=== PATIENT | female | born 1990 | race Two or more races ===

== ENCOUNTER 2025-01-05 09:40 | Inpatient (IN) | payer BC, OTHER ==
[~2025-01-05] VITALS: Ht 172.7 cm; Wt 105.0 kg
[2025-01-05 10:00] VITALS: PULSE 106; RESP 17; O2SAT 96
--- NOTE | 2025-01-05 10:02 | ED.PDOC ---
GI ASSESSMENT HPI Comments This is a 34 year old female ALEJANDRINA presenting to the ED with chief complaint of abdominal pain. Patient reports that she has been experiencing suprapubic abdominal pain with associated dysuria and mild fever since yesterday. Patient relays that she had a recent partial hysterectomy performed last week. EMS states that they provided 1g of Tylenol and IV fluids, dropping her pain from an 8/10 to a 5/10. Patient denies any N/V/D, dizziness, hematuria, vaginal bleeding, flank pain, or chills. Chief Complaint: Abdominal Pain Time Seen by MD: 09:58 Reviewed Notes: Nurses Notes, Bingo Cashier Notes, Medications, Allergies Allergies: Coded Allergies: NO KNOWN ALLERGIES (Unverified , 01/05/25) Information Source: Patient, Emergency Med Personnel Mode of Arrival: EMS Timing: Days Duration: Since onset Prehospital treatment: None Quality: Aching Vomitus: None Stool: Normal Severity: Moderate Recent: None Recent Hx of: Abdominal Surgery Pain Location: Suprapubic Modifying Factors: Nothing Associated sign and symptoms: Abdominal Pain Past Medical History PAST MEDICAL HISTORY: Denies Surgical History: Hysterectomy MENTAL HEALTH PROGRAM SPECIALIST History: No Pertinent MENTAL HEALTH PROGRAM SPECIALIST History Family History Family History: Reviewed,noncontributory to illness Social History Smoker: Non-Smoker Alcohol: Denies ETOH Use Drugs: Denies Drug Use Lives In: Home Constitutional: reports: fever; denies: chills, diaphoresis, fatigue, malaise, sweats, weakness, others EENTM: denies: blurred vision, double vision, ear bleeding, ear discharge, ear drainage, ear pain, ear ringing, eye pain, eye redness, hearing loss, mouth pain, mouth swelling, nasal discharge, nose bleeding, nose congestion, nose pain, photophobia, tearing, throat pain, throat swelling, voice changes, others Respiratory: denies: cough, hemoptysis, orthopnea, SOB at rest, shortness of breath, SOB with excertion, stridor, wheezing, others Cardiovascular: denies: chest pain, dizzy spells, diaphoresis, Dyspnea on exertion, edema, irregular heart beat, left arm pain, lightheadedness, palpitations, PND, syncope, others Gastrointestinal: reports: abdominal pain; denies: abdomen distended, blood streaked bowels, constipated, diarrhea, dysphagia, difficulty swallowing, hematemesis, melena, nausea, poor appetite, poor fluid intake, rectal bleeding, rectal pain, vomiting, others Genitourinary: reports: dysuria; denies: abnormal vagina bleeding, burning, dyspareunia, flank pain, frequency, hematuria, incontinence, pain, , vagina discharge, urgency, others Neurological: denies: dizziness, fainting, headache, left sided numbness, left sided weakness, numbness, paresthesia, pre-existing deficit, right sided numbness, right sided weakness, seizure, speech problems, tingling, tremors, weakness, others Musculoskeletal: denies: back pain, gout, joint pain, joint swelling, muscle pain, muscle stiffness, neck pain, others Integumetry: denies: bruises, change in color, change in hair/nails, dryness, laceration, lesions, lumps, rash, wounds, others Allergic/Immunocompromised: denies: Difficulty Healing, Frequent Infections, Hives, Itching, others Hematologic/Lymphatic: denies: anemia, blood clots, easy bleeding, easy bruising, swollen glands, others Endocrine: denies: excessive hunger, excessive sweating, excessive thirst, excessive urination, flushing, intolerance to cold, intolerance to heat, unexplained weight gain, unexplained weight loss, others Psychiatric: denies: anxiety, bipolar disorder, depression, hopeless, panic disorder, schizophrenia, sleepless, suicidal, others All Other Systems: Reviewed and Negative Physical Exam General Appearance: No Apparent Distress, Normal HEENT: Normal ENT Inspection, Pharynx Normal, TMs Normal Neck: Full Range of Motion, Non-Tender, Normal, Normal Inspection Respiratory: Chest Non-Tender, Lungs Clear, No Accessory Muscle Use, No Respiratory Distress, Normal Breath Sounds Cardiovascular: No Edema, No JVD, No Murmur, No Gallop, Normal Peripheral Pulses, Regular Rate/Rhythm Breast Exam: Deferred Gastrointestinal: No Organomegaly, No Pulsatile Mass, Normal Bowel Sounds, Soft, Tenderness (Suprapubic abdominal tenderness) Genitalia: Deferred Pelvic: Deferred Rectal: Deferred Extremities: No calf tenderness, Normal capillary refill, Normal inspection, Normal range of motion, Non-tender, No pedal edema Musculoskeletal : Apperance: Normal Neurologic: Alert, jewel supervisor II-XII nml as Tested, No Motor Deficits, Normal Affect, Normal Mood, No Sensory Deficits Cerebellar Function: Normal Reflexes: Normal Skin: Dry, Normal Color, Warm Lymphatic: No Adenopathy Was a procedure done? Was a procedure done?: No GI differential Dx Differential Diagnosis: Cholecystitis, Gastritis/PUD, Gastroenteritis, Inflammatory BD, UTI, Dehydration, Electrolyte Imbalance, Bacterial X-Ray, Labs, Meds, VS Vital Signs Date Time Temp Pulse Resp B/P (MAP) Pulse Ox O2 Delivery O2 Flow Rate FiO2 01/05/25 12:05 101 01/05/25 12:00 100.8 108 20 108/66 (80) 97 100.8 01/05/25 10:00 106 17 96 Room Air* 0 21 01/05/25 10:00 101.5 106 17 106/58 (74) 96 101.5 01/05/25 09:45 99.5 110 20 102/78 (86) 97 99.5 Lab Test 01/05/25 10:00 01/05/25 09:56 Range/Units Urine Color Light-yellow Yellow Urine Clarity Turbid H Clear Urine pH 5.5 5.0-9.0 Urine Specific [place] 1.027 1.001-1.035 Urine Protein Negative Negative Urine Ketones Negative Negative Urine Blood Trace H Negative /uL Urine Nitrite 2+ H Negative Urine Bilirubin Negative Negative Urine Urobilinogen Normal Negative mg/dL Urine Leukocyte Esterase 2+ Negative /uL Urine RBC 4 0 - 4 /hpf Urine Microscopic WBC 31 H 0-5 /HPF Urine Squamous Epithelial Cells Few <5 /hpf Urine Bacteria Few H None Seen /hpf Urine Glucose Normal Normal mg/dL White Blood Count 17.7 H 4.4-10.8 10^3/uL Red Blood Count 4.69 4.0-5.20 10^6/uL Hemoglobin 8.7 L 12.2-16.2 g/dL Hematocrit 28.3 L 36.0-46.0 % Mean Corpuscular Volume 60.2 L 80.0-100.0 fL Mean Corpuscular Hemoglobin 18.4 L 28.0-32.0 pg Mean Corpuscular Hemoglobin Concent 30.6 L 32.0-36.0 g/dL Red Cell Distribution Width 27.3 H 11.8-14.3 % Platelet Count 367 140-450 10^3/uL Mean Platelet Volume 9.2 6.9-10.8 fL Neutrophils (%) (Auto) 87.5 H 37.0-80.0 % Lymphocytes (%) (Auto) 6.2 L 10.0-50.0 % Monocytes (%) (Auto) 6.1 0.0-12.0 % Eosinophils (%) (Auto) 0.0 0.0-7.0 % Basophils (%) (Auto) 0.2 0.0-2.0 % Neutrophils # (Auto) 15.5 H 1.6-8.6 10 ^3/uL Lymphocytes # (Auto) 1.1 0.4-5.4 10 ^3/uL Monocytes # (Auto) 1.1 0-1.3 10 ^3/uL Eosinophils # (Auto) 0 0-0.8 10 ^3/uL Basophils # (Auto) 0 0-0.2 10 ^3/uL Nucleated Red Blood Cells 0.0 % Platelet Estimate Adequate Hypochromasia (manual) Moderate Anisocytosis (manual) Slight Microcytosis Marked Prothrombin Time 13.5 H 9.3-11.8 sec Prothrombin Time INR 1.31 H 0.9-1.15 Activated Partial Thromboplast Time 31.0 24.5-34.5 SEC Sodium Level 135 L 136-145 mmol/L Potassium Level 3.5 3.5-5.1 mmol/L Chloride Level 102 98-107 mmol/L Carbon Dioxide Level 22 20-31 mmol/L Anion Gap 11 5-15 Blood Urea Nitrogen 8 L 9-23 mg/dL Creatinine 0.76 0.550-1.02 mg/dL Glomerular Filtration Rate Calc 106 >90 mL/min BUN/Creatinine Ratio 10.5 10.0-20.0 Serum Glucose 111 H 74-106 mg/dL Lactic Acid Level 1.4 0.4-2.0 mmol/L Calcium Level 9.5 8.7-10.4 mg/dL Current Medications Medications (Trade) Dose Ordered Sig/Mervat Route Start Time Stop Time Status Last Admin Sodium Chloride 1,000 ml @ 1,000 mls/hr Q1H ONCE IV 01/05/25 10:00 01/05/25 10:59 DC 01/05/25 10:12 Lactated Ringer's 1,900 ml @ 1,900 mls/hr ONCE ONCE IV 01/05/25 10:15 01/05/25 11:14 DC 01/05/25 11:04 Vancomycin HCl 200 ml @ 200 mls/hr ONCE ONCE IV 01/05/25 10:15 01/05/25 11:14 DC 01/05/25 10:42 Cefepime HCl 50 ml @ 50 mls/hr ONCE ONCE IV 01/05/25 10:30 01/05/25 11:29 DC 01/05/25 12:06 Time of 1ST Reevaluation: 10:58 Reevaluation 1ST: Unchanged Patient Education/Counseling: Diagnosis, Treatment Family Education/Counseling: No Family Present SEPSIS Sepsis Screen Physician Orders Blood Culture (01/05/25 09:47) Chest Portable (01/05/25 10:13) Accucheck (01/05/25 10:13) Cefepime 1gm/ 50ml (Maxipime 1gm/50ml) (01/05/25 20:00) Notify Md If Map <65 Or Bp<90 (01/05/25 10:13) If Map<65 Start Vasopressor (01/05/25 10:13) Sepsis Reassesment After Fluid (01/05/25 11:13) Ct Ab Pel With Iv Con Only (01/05/25 10:13) Imaging Transfer Request (01/05/25 12:27) Metronidazole 500mg/100ml (Flagyl 500mg/ (01/05/25 15:00) * Radiologist Consult (01/05/25 14:54) Vital Signs Date Time Temp Pulse Resp B/P (MAP) Pulse Ox O2 Delivery O2 Flow Rate FiO2 01/05/25 12:05 101 01/05/25 12:00 100.8 108 20 108/66 (80) 97 100.8 01/05/25 10:00 106 17 96 Room Air* 0 21 01/05/25 10:00 101.5 106 17 106/58 (74) 96 101.5 01/05/25 09:45 99.5 110 20 102/78 (86) 97 99.5 Laboratory Tests Test 01/05/25 09:56 Lactic Acid Level 1.4 mmol/L (0.4-2.0) White Blood Count 17.7 10^3/uL (4.4-10.8) H Medications Medications Dose Ordered Sig/Mervat Route Start Time Stop Time Status Last Admin Dose Admin Cefepime HCl 50 ml @ 50 mls/hr ONCE ONCE IV 01/05/25 10:30 01/05/25 11:29 DC 01/05/25 12:06 Lactated Ringer's 1,900 ml @ 1,900 mls/hr ONCE ONCE IV 01/05/25 10:15 01/05/25 11:14 DC 01/05/25 11:04 Sodium Chloride 1,000 ml @ 1,000 mls/hr Q1H ONCE IV 01/05/25 10:00 01/05/25 10:59 DC 01/05/25 10:12 Vancomycin HCl 200 ml @ 200 mls/hr ONCE ONCE IV 01/05/25 10:15 01/05/25 11:14 DC 01/05/25 10:42 Departure 1 Departure Time of Disposition: 15:07 (Patient presented likely septic shock. Discussed the case with patient's Gyne surgeon who recommended that patient be admitted at our hospital receive IV antibiotics as a discussed with the IR about having a drain placed.Patient received IV fluids and antibiotics. We will admit for further workup and expert consultation) Impression: Primary Impression: Postoperative abscess Additional Impression: Sepsis Qualified Codes: A41.9 - Sepsis, unspecified organism; R65.21 - Severe sepsis with septic shock; G72.81 - Critical illness myopathy Disposition: 09 ADMITTED INPATIENT Admit to: [facility] Condition: Guarded Critical Care Note Critical Care Time?: Yes Critical care comment: Sepsis, intra-abdominal abscess Authorized and Performed by: Mellissa Aggarwal MD Total critical care time: Approximately 48 minutes Due to a high probability of clinically significant, life threatening deterioration, the patient required my highest level of preparedness to intervene emergently and I personally spent this critical care time directly and personally managing the patient. This critical care time included obtaining a history; examining the patient; pulse oximetry; ordering and review of studies; arranging urgent treatment with development of a management plan; evaluation of patient's response to treatment; frequent reassessment; and, discussions with other providers. This critical care time was performed to assess and manage the high probability of imminent, life-threatening deterioration that could result in multi-organ failure. It was exclusive of separately billable procedures and treating other patients and teaching time. Please see my other sections and the rest of the note for further information on patient assessment and treatment. Stability Stability form required: No Heart Score Heart Score: Heart Score Response (Comments) Value History N/A 0 EKG N/A 0 Age N/A 0 Risk Factors N/A 0 Troponin N/A 0 Total 0 I personally scribed for MELLISSA AGGARWAL MD ([email or web address]) on 01/05/25 at 10:02. Electronically submitted by Andrés Guaman ([email or web address]). MELLISSA AGGARWAL MD Jan 05, 2025 10:02
[2025-01-05] MEDS: SODIUM CHLORIDE 0.9% 1,000 ML IV ONE (10:12)
[2025-01-05 10:34] LABS: Hemoglobin 8.7 g/dL (12.2-16.2); Nucleated Red Blood Cells % 0.0 %
[2025-01-05 10:36] LABS: Hematocrit 28.3 % (36.0-46.0); Mean Corpuscular Hemoglobin 18.4 pg (28.0-32.0); Mean Corpuscular Volume 60.2 fL (80.0-100.0)
[2025-01-05] MEDS: VANCOMYCIN 1GM/200ML PM 200 ML IV ONE (10:42)
[2025-01-05 10:50] LABS: Chloride 102 mmol/L (98-107); Potassium 3.5 mmol/L (3.5-5.1)
[2025-01-05] MEDS: ACETAMINOPHEN IV 1000 MG/100ML (10MG/ML) IV STA (10:50)
[2025-01-05 10:51] LABS: Anion Gap 11 (5-15); Calcium 9.5 mg/dL (8.7-10.4); Carbon Dioxide 22 mmol/L (20-31)
[2025-01-05 10:52] LABS: Sodium 135 mmol/L (136-145)
[2025-01-05 10:53] LABS: INR 1.31 (0.9-1.15); Partial Thromboplastin Time 31.0 SEC (24.5-34.5); Prothrombin Time 13.5 sec (9.3-11.8)
[2025-01-05 10:56] LABS: BUN/Creatinine Ratio 10.5 (10.0-20.0)
[2025-01-05 10:58] LABS: Blood Urea Nitrogen 8 mg/dL (9-23); Glucose 111 mg/dL (74-106)
[2025-01-05] MEDS: LACTATED RINGER'S 1,900 ML IV ONE (11:04)
[2025-01-05 11:10] LABS: Anisocytosis Slight
--- NOTE | 2025-01-05 11:57 | DVH ---
CHEST RADIOGRAPH Indication: sepsis Technique: Single frontal view of the chest was obtained COMPARISON: None FINDINGS: Lines and Tubes: None Lungs: Clear Pleura: No effusion. No pneumothorax. Cardiomediastinal contours: Unremarkable Bones: Unremarkable IMPRESSION: No acute disease.
[2025-01-05] MEDS: CEFEPIME 1GM/ 50ML 50 ML IV ONE (12:06)
--- NOTE | 2025-01-05 12:09 | DVH ---
Indication: recent surgery, febrile, tender Technique: CT axial images of the abdomen and pelvis are obtained with 568.55 x 597.03 intravenous co ntrast. Coronal and sagittal reformats were obtained. Radiation Dose Information: CTDI volume is 1166.01 mGy. Dose-length product is 1158.17 mGy*cm Comparison: None FINDINGS: Lung bases demonstrate no pleural effusion. Bilateral atelectasis. Adrenal glands, spleen, pancreas unremarkable. No enhancing hepatic lesion. No CT evidence for pedro lithiasis. The kidneys demonstrate mild bilateral hydroureteronephrosis. Stomach is partially distended. Small bowel loops are moderately distended. Moderate volume stool in the colon. Normal appendix. Abdominal aorta normal in caliber. Multiloculated pelvic rim enhancing collection measuring 8.7 x 7.1 x 5.6 cm. Surrounding inflammator y stranding. Presacral edema. Fluid in the bilateral paracolic gutters, [id number]. Bladder is partially distended. No inguinal lymphadenopathy. No aggressive osseous process. IMPRESSION: Multiloculated pelvic rim enhancing collection measuring 8.7 x 7.1 cm with surrounding extends inflam matory stranding. In the postoperative setting, differential considerations would favor an abscess. Other considerations include postoperative collection/ hematoma / seroma. Recommend surgical consult ation for further management. Mild bilateral hydroureteronephrosis secondary to compression upon the distal ureters secondary to th e underlying pelvic process.
[2025-01-05 12:18] LABS: Urine Protein, UAD Negative (Negative)
[2025-01-05 15:00] VITALS: PULSE 117; RESP 25; O2SAT 96
[2025-01-05] MEDS ORDERED: NITROGLYCERIN 0.4 MG SL TAB SL PRN (15:30)
[2025-01-05] MEDS ORDERED: MORPHINE SULFATE INJ 2 MG/ml SYRG IV PRN (15:30)
[2025-01-05] MEDS ORDERED: VANCOMYCIN 1GM/200ML PM 200 ML IV SCH (15:30)
--- NOTE | 2025-01-05 15:40 | DVHHP2 ---
History of Present Illness Reason for Visit: Sepsis, unspecified organism History of Present Illness The patient is a 34-year-old female who denies past medical history presented to [facility] ED with complaint of abdominal pain. Patient reports she has been experiencing suprapubic abdominal pain, rating 8/10 numeric scale, associated with dysuria, fever, getting worse that prompted this visit. Patient states that she had recent partial hysterectomy performed last week. Patient was seen and evaluated in the ED, laboratory data shows WBC 17.7, hemoglobin 8.7, hematocrit 28.3, platelets 367, sodium 138, potassium 3.5, BUN eight, creatinine 0.76, glucose 111, calcium 9.5, blood pressure 108/56, heart rate 101, temperature 101.5 F trending down to 99.5 F, O2 saturation 97% on room air. Abdomen/pelvis CT revealing multiloculated pelvic rim enhancing collection measuring 8.7 x 7.1 cm with surrounding extend inflammatory stranding; in the postoperative setting, differential considerations favor an abscess; mild bilateral hydroureteronephrosis secondary to compression upon the distal ureters secondary to the underlying pelvic process. Urinalysis positive for urinary tract infection. Patient was started on IV antibiotic regimen vancomycin, please see medication orders section in the computer. On my assessment, patient denied chest pain, no dizziness, no headache, no shortness of breath, no nausea, no vomiting, no chills. Patient was admitted for further evaluation and medical management. Past Medical History Denies past medical history Past Surgical History Hysterectomy Family History Reviewed, noncontributory to the management of this case. Past Social History The patient lives at home, denies smoking, alcohol or illicit drugs abuse. Review of Systems Constitutional: Yes: Fever, Weakness; No: Chills, Sweats, Malaise, Other Eyes: No: Pain, Vision change, Conjunctivae inflammation, Eyelid inflammation, Other, Redness ENT: No: Ear pain, Ear discharge, Nose pain, Nose discharge, Nose congestion, Mouth pain, Mouth swelling, Throat pain, Throat swelling, Other Respiratory: No: Cough, Dry, Shortness of breath, SOB with excertion, Wheezing, Hemoptysis, Pleuritic Pain, Sputum, Wheezing, Other Cardiovascular: No: Chest Pain, Palpitations, Orthopnea, Paroxysmal Noc. Dyspnea, Edema, Lt Headedness, Other Gastrointestinal: Abdominal Pain; No: Nausea, Vomiting, Diarrhea, Constipation, Melena, Hematochezia, Other Genitourinary: Dysuria; No Frequency, No Incontinence, No Hematuria, No Retention, No Other Musculoskeletal: No: other, neck pain, shoulder pain, arm pain, back pain, hand pain, leg pain, foot pain Skin: No: Rash, Lesions, Jaundice, Bruising, Other Neurological: No: Weakness, Numbness, Incoordination, Change in speech, Confusion, Seizures, Other Allergies: Coded Allergies: NO KNOWN ALLERGIES (Unverified , 01/05/25) Medications Current Medications Medications Dose Ordered Sig/Mervat Route Start Time Stop Time Status Last Admin Dose Admin Cefepime HCl 50 ml @ 12.5 mls/hr Q8H IV 01/05/25 20:00 Exam Vital Signs Vital Signs Date Time Temp Pulse Resp B/P (MAP) Pulse Ox O2 Delivery O2 Flow Rate FiO2 01/05/25 12:05 101 01/05/25 12:00 100.8 20 108/66 (80) 97 100.8 01/05/25 10:00 Room Air* 0 21 General Appearance: Alert, Oriented X3, Cooperative, No acute distress HEENT: Atraumatic, PERRLA, EOMI, Mucous membr. moist/pink Respiratory: Clear to auscultation, Normal air movement Cardiovascular: Regular rate, Normal S1, Normal S2, No murmurs Abdominal: Normal bowel sounds, Soft, No hepatospenomegaly, No masses, Other (Reports tenderness) Extremities: No clubbing, No cyanosis, No edema, Normal pulses, No tenderness/swelling Skin: No rashes, No breakdown, No significant lesion Neuro: Normal speech, Normal tone, Sensation intact, Cranial nerves 3-12 NL, Reflexes 2+, Other (Generalized weakness) Psych/Mental Status: Mental status NL, Mood NL Labs/Xrays Labs Test 01/05/25 10:00 01/05/25 09:56 Range/Units Urine Color Light-yellow Yellow Urine Clarity Turbid H Clear Urine pH 5.5 5.0-9.0 Urine Specific [place] 1.027 1.001-1.035 Urine Protein Negative Negative Urine Ketones Negative Negative Urine Blood Trace H Negative /uL Urine Nitrite 2+ H Negative Urine Bilirubin Negative Negative Urine Urobilinogen Normal Negative mg/dL Urine Leukocyte Esterase 2+ Negative /uL Urine RBC 4 0 - 4 /hpf Urine Microscopic WBC 31 H 0-5 /HPF Urine Squamous Epithelial Cells Few <5 /hpf Urine Bacteria Few H None Seen /hpf Urine Glucose Normal Normal mg/dL White Blood Count 17.7 H 4.4-10.8 10^3/uL Red Blood Count 4.69 4.0-5.20 10^6/uL Hemoglobin 8.7 L 12.2-16.2 g/dL Hematocrit 28.3 L 36.0-46.0 % Mean Corpuscular Volume 60.2 L 80.0-100.0 fL Mean Corpuscular Hemoglobin 18.4 L 28.0-32.0 pg Mean Corpuscular Hemoglobin Concent 30.6 L 32.0-36.0 g/dL Red Cell Distribution Width 27.3 H 11.8-14.3 % Platelet Count 367 140-450 10^3/uL Mean Platelet Volume 9.2 6.9-10.8 fL Neutrophils (%) (Auto) 87.5 H 37.0-80.0 % Lymphocytes (%) (Auto) 6.2 L 10.0-50.0 % Monocytes (%) (Auto) 6.1 0.0-12.0 % Eosinophils (%) (Auto) 0.0 0.0-7.0 % Basophils (%) (Auto) 0.2 0.0-2.0 % Neutrophils # (Auto) 15.5 H 1.6-8.6 10 ^3/uL Lymphocytes # (Auto) 1.1 0.4-5.4 10 ^3/uL Monocytes # (Auto) 1.1 0-1.3 10 ^3/uL Eosinophils # (Auto) 0 0-0.8 10 ^3/uL Basophils # (Auto) 0 0-0.2 10 ^3/uL Nucleated Red Blood Cells 0.0 % Platelet Estimate Adequate Hypochromasia (manual) Moderate Anisocytosis (manual) Slight Microcytosis Marked Prothrombin Time 13.5 H 9.3-11.8 sec Prothrombin Time INR 1.31 H 0.9-1.15 Activated Partial Thromboplast Time 31.0 24.5-34.5 SEC Sodium Level 135 L 136-145 mmol/L Potassium Level 3.5 3.5-5.1 mmol/L Chloride Level 102 98-107 mmol/L Carbon Dioxide Level 22 20-31 mmol/L Anion Gap 11 5-15 Blood Urea Nitrogen 8 L 9-23 mg/dL Creatinine 0.76 0.550-1.02 mg/dL Glomerular Filtration Rate Calc 106 >90 mL/min BUN/Creatinine Ratio 10.5 10.0-20.0 Serum Glucose 111 H 74-106 mg/dL Lactic Acid Level 1.4 0.4-2.0 mmol/L Calcium Level 9.5 8.7-10.4 mg/dL PATIENT: ODALYS ELLOITT ACCT: [id number] UNIT: [id number] : 1990 LOC: ER ROOM / BED: / AGE / SEX: 34 / F ADM STATUS: REG ER SERVICE 1013 ORDERING PHYSICIAN: MELLISSA PEPPER MD PROCEDURE(s): ABPLIV - CT AB PEL WITH IV CON ONLY REASON: recent surgery, febrile, tender ORDER NUMBER(s): [id number], ACCESSION NUMBER(s): [id number] Indication: recent surgery, febrile, tender Technique: CT axial images of the abdomen and pelvis are obtained with 568.55 x 597.03 intravenous contrast. Coronal and sagittal reformats were obtained. Radiation Dose Information: CTDI volume is 1166.01 mGy. Dose-length product is 1158.17 mGy*cm Comparison: None FINDINGS: Lung bases demonstrate no pleural effusion. Bilateral atelectasis. Adrenal glands, spleen, pancreas unremarkable. No enhancing hepatic lesion. No CT evidence for cholelithiasis. The kidneys demonstrate mild bilateral hydroureteronephrosis. Stomach is partially distended. Small bowel loops are moderately distended. Moderate volume stool in the colon. Normal appendix. Abdominal aorta normal in caliber. Multiloculated pelvic rim enhancing collection measuring 8.7 x 7.1 x 5.6 cm. Surrounding inflammatory stranding. Presacral edema. Fluid in the bilateral paracolic gutters, [id number]. Bladder is partially distended. No inguinal lymphadenopathy. No aggressive osseous process. IMPRESSION: Multiloculated pelvic rim enhancing collection measuring 8.7 x 7.1 cm with surrounding extends inflammatory stranding. In the postoperative setting, differential considerations would favor an abscess. Other considerations include postoperative collection/ hematoma/seroma. Recommend surgical consultation for further management. Mild bilateral hydroureteronephrosis secondary to compression upon the distal ureters secondary to the underlying pelvic process. ORDERING PHYSICIAN: MELLISSA PEPPER MD PROCEDURE(s): CXRP - CHEST PORTABLE REASON: sepsis ORDER NUMBER(s): [id number], ACCESSION NUMBER(s): [id number] CHEST RADIOGRAPH Indication: sepsis Technique: Single frontal view of the chest was obtained COMPARISON: None FINDINGS: Lines and Tubes: None Lungs: Clear Pleura: No effusion. No pneumothorax. Cardiomediastinal contours: Unremarkable Bones: Unremarkable IMPRESSION: No acute disease. SEPSIS Sepsis Screen Date sepsis recognized/suspect: Jan 05, 2025 Time Sepsis recognized/suspect: 1000 Recent Procedure: Yes On Antibiotic Therapy: No Respiratory Rate >20: No Heart Rate >90: Yes Temp<36 C (96.8 F) or >38.3 C: Yes SBP <90 or MAP <65 mmHG: No New Acute Mental Status Change: No Is the patient on CPAP, BIPAP,: No Physician Orders Blood Culture (01/05/25 09:47) Chest Portable (01/05/25 10:13) Accucheck (01/05/25 10:13) Cefepime 1gm/ 50ml (Maxipime 1gm/50ml) (01/05/25 20:00) Notify Md If Map <65 Or Bp<90 (01/05/25 10:13) If Map<65 Start Vasopressor (01/05/25 10:13) Sepsis Reassesment After Fluid (01/05/25 11:13) Ct Ab Pel With Iv Con Only (01/05/25 10:13) Imaging Transfer Request (01/05/25 12:27) Metronidazole 500mg/100ml (Flagyl 500mg/ (01/05/25 15:00) * Radiologist Consult (01/05/25 14:54) Vital Signs Date Time Temp Pulse Resp B/P (MAP) Pulse Ox O2 Delivery O2 Flow Rate FiO2 01/05/25 12:05 101 01/05/25 12:00 100.8 108 20 108/66 (80) 97 100.8 01/05/25 10:00 106 17 96 Room Air* 0 21 01/05/25 10:00 101.5 106 17 106/58 (74) 96 101.5 01/05/25 09:45 99.5 110 20 102/78 (86) 97 99.5 Laboratory Tests Test 01/05/25 09:56 Lactic Acid Level 1.4 mmol/L (0.4-2.0) White Blood Count 17.7 10^3/uL (4.4-10.8) H Medications Medications Dose Ordered Sig/Mervat Route Start Time Stop Time Status Last Admin Dose Admin Cefepime HCl 50 ml @ 50 mls/hr ONCE ONCE IV 01/05/25 10:30 01/05/25 11:29 DC 01/05/25 12:06 50 MLS/HR Lactated Ringer's 1,900 ml @ 1,900 mls/hr ONCE ONCE IV 01/05/25 10:15 01/05/25 11:14 DC 01/05/25 11:04 1,900 MLS/HR Sodium Chloride 1,000 ml @ 1,000 mls/hr Q1H ONCE IV 01/05/25 10:00 01/05/25 10:59 DC 01/05/25 10:12 1,000 MLS/HR Vancomycin HCl 200 ml @ 200 mls/hr ONCE ONCE IV 01/05/25 10:15 01/05/25 11:14 DC 01/05/25 10:42 200 MLS/HR Assessment/Plan Assessment/Plan Sepsis, unspecified organism Acute abdominal pain Postoperative abscess Urinary tract infection Generalized weakness Plan 1. Admit to telemetry unit 2. Breathing treatment 3. Pain control management 4. IV antibiotic management 5. Management of fluids and electrolytes 6. Consultation for hospitalist/radiology 7. Diagnostic test abdomen/pelvis CT 8. DVT prophylaxis-on SCDs 9. Repeat labs CBC, CMP in a.m. 10. Continue with current medical management 11. Treatment plan discussed with patient and RN. Patient verbalized understanding. Plan discussed with: Patient, Other (RN) Problem List: (1) Sepsis, unspecified organism (2) Acute abdominal pain (3) Postoperative abscess (4) Urinary tract infection (5) Generalized weakness Date of Service: Jan 05, 2025 Billing Provider: BRUCE LEVINE DNP Common Visit Codes: [id number] INP/OBS CARE (HIGH) BRUCE LEVINE DNP Jan 05, 2025 15:40
[2025-01-05] MEDS: MORPHINE SULFATE INJ 2 MG/ml SYRG IV PRN (15:50)
[2025-01-05] MEDS: PANTOPRAZOLE 40 MG/10 ML VIAL INJ IV ONE (15:55)
[2025-01-05] MEDS ORDERED: VANCOMYCIN PER PHARMACY 0 MG IV SCH (16:00)
[2025-01-05] MEDS: SODIUM CHLORIDE 0.9% 1,000 ML IV SCH (16:15)
[2025-01-05] MEDS: ONDANSETRON HCL 4 MG/2 ML VIAL IV PRN (16:36)
[2025-01-05] MEDS: PIPERACILLIN-TAZOB 3.375GM 100 ML IV ONE (17:19)
[2025-01-05 17:48] VITALS: BP 110/63; PULSE 110; PULSE 113; RESP 20; TEMP 103.1; O2SAT 97
[2025-01-05] MEDS: ACETAMINOPHEN 325 MG TAB PO PRN (18:06)
[2025-01-05] MEDS ORDERED: IBUP1TAB5 PO (18:10)
[2025-01-05] MEDS ORDERED: DOCU-265 PO (18:10)
[2025-01-05] MEDS: VANCOMYCIN 1GM/200ML PM 200 ML IV SCH (19:57)
[2025-01-05 20:00] VITALS: PULSE 106
[2025-01-05] MEDS ORDERED: CEFEPIME 1GM/ 50ML 50 ML IV SCH (20:00)
[2025-01-05 21:00] VITALS: BP 102/55; PULSE 97; RESP 14; TEMP 97.7; O2SAT 100
[2025-01-05] MEDS: PIPERACILLIN-TAZOB 3.375GM 100 ML IV SCH (21:44)
[2025-01-06] VITALS (16 sets, daily range): BP systolic 100–117; BP diastolic 43–73; PULSE 86–117; RESP 14–24; TEMP 98.1–102.8; O2SAT 94–100
[2025-01-06 06:32] LABS: Mean Corpuscular Hemoglobin 18.5 pg (28.0-32.0); Nucleated Red Blood Cells % 0.0 %
[2025-01-06 06:36] LABS: Alanine Aminotransferase 10 U/L (7-40); Alkaline Phosphatase 75 U/L (46-116); Anion Gap 9 (5-15); BUN/Creatinine Ratio 10.0 (10.0-20.0); Calcium 9.7 mg/dL (8.7-10.4); Carbon Dioxide 23 mmol/L (20-31); Chloride 106 mmol/L (98-107); Hematocrit 24.0 % (36.0-46.0); Hemoglobin 7.2 g/dL (12.2-16.2); Mean Corpuscular Volume 61.5 fL (80.0-100.0); Sodium 138 mmol/L (136-145); Total Protein 6.5 g/dL (5.7-8.2)
[2025-01-06 06:37] LABS: Albumin 3.9 g/dL (3.2-4.8)
[2025-01-06 06:38] LABS: Bilirubin, Total 1.5 mg/dL (0.2-1.0); Blood Urea Nitrogen 7 mg/dL (9-23); Potassium 3.4 mmol/L (3.5-5.1)
[2025-01-06 07:04] LABS: Glucose 96 mg/dL (74-106)
[2025-01-06 07:42] LABS: INR 1.31 (0.9-1.15); Partial Thromboplastin Time 34.0 SEC (24.5-34.5); Prothrombin Time 13.5 sec (9.3-11.8)
[2025-01-06 08:17] LABS: Anisocytosis Slight
[2025-01-06 08:19] LABS: Ovalocytes FEW
[2025-01-06] MEDS ORDERED: LIDOCAINE 2%HCL (LOCAL ANESTH.) INJ 10ml MDV ONE (09:11)
[2025-01-06] MEDS: fentaNYL CITRATE 100 MCG/2 ML VL IV ONE (09:45)
[2025-01-06] MEDS: MIDAZOLAM HCL 2MG/2ML 2ml VIAL (1mg/ml) IV ONE (09:45)
--- NOTE | 2025-01-06 11:33 | DVH ---
PROCEDURE: Drainage catheter placement Procedural Personnel Attending physician(s): Zia Mcintosh Fellow physician(s): None Resident physician(s): None Advanced practice provider(s): None Pre-procedure diagnosis: Pelvic fluid collection Post-procedure diagnosis: Same Indication: Post-operative fluid collection Additional clinical history: None Complications: No immediate complications. IMPRESSION: Percutaneous placement of a 10 tamazight drainage catheter into multiloculated pelvic fluid collection, yielding 25 mL of purulent fluid. Plan: Flush drain with 10 mL normal saline daily to maintain patency. PROCEDURE SUMMARY: - Intraperitoneal drainage catheter placement under CT guidance - Additional procedure(s): None PROCEDURE DETAILS: Pre-procedure Consent: Informed consent for the procedure including risks, benefits and alternatives was obtained a nd time-out was performed prior to the procedure. Preparation: The site was prepared and draped using maximal sterile barrier technique including cutan eous antisepsis. Anesthesia/sedation Level of anesthesia/sedation: Moderate sedation (conscious sedation) Anesthesia/sedation administered by: Independent trained observer under attending supervision with co ntinuous monitoring of the patient s level of consciousness and physiologic status Total intra-service sedation time (minutes): 30 Drainage catheter placement The patient was positioned supine. Initial imaging was performed. Local anesthesia was administered. The fluid collection was accessed using an access needle followed by wire insertion and serial dilati on and a drainage catheter was placed. Position of the drainage catheter within the fluid collection was confirmed. Initial imaging findings: Multiloculated pelvic fluid collection Access route: Percutaneous Drainage catheter placed: Multipurpose drain Drain size (Fr): 10 External catheter securement: Non-absorbable suture Drainage catheter contrast injection: No Final imaging findings: Near-complete drainage of the fluid collection Contrast Contrast agent: None Contrast volume (mL): [address] dose length product (mGy-cm): 1565.29 Additional Details Additional description of procedure: None Registry event: V/3/f Device used: None Equipment details: None Specimens removed: 25 mL of purulent fluid. Aspirated fluid was sent for analysis. Estimated blood loss (mL): Less than 10 Standardized report: [email or web address] Attestation Signer name: Zia Mcintosh I attest that I was present for the entire procedure. I reviewed the stored images and agree with the report as written.
[2025-01-06] MEDS: PANTOPRAZOLE 40 MG/10 ML VIAL INJ IV SCH (12:03)
[2025-01-06] MEDS: HYDROcodone-ACET 5/325MG TAB PO PRN (12:04)
--- NOTE | 2025-01-06 12:06 | DVH ---
PROCEDURE: Drainage catheter placement Procedural Personnel Attending physician(s): Zia Mcintosh Fellow physician(s): None Resident physician(s): None Advanced practice provider(s): None Pre-procedure diagnosis: Pelvic fluid collection Post-procedure diagnosis: Same Indication: Post-operative fluid collection Additional clinical history: None Complications: No immediate complications. IMPRESSION: Percutaneous placement of a 10 albanian drainage catheter into multiloculated pelvic fluid collection, yielding 25 mL of purulent fluid. Plan: Flush drain with 10 mL normal saline daily to maintain patency. PROCEDURE SUMMARY: - Intraperitoneal drainage catheter placement under CT guidance - Additional procedure(s): None PROCEDURE DETAILS: Pre-procedure Consent: Informed consent for the procedure including risks, benefits and alternatives was obtained a nd time-out was performed prior to the procedure. Preparation: The site was prepared and draped using maximal sterile barrier technique including cutan eous antisepsis. Anesthesia/sedation Level of anesthesia/sedation: Moderate sedation (conscious sedation) Anesthesia/sedation administered by: Independent trained observer under attending supervision with co ntinuous monitoring of the patient s level of consciousness and physiologic status Total intra-service sedation time (minutes): 30 Drainage catheter placement The patient was positioned supine. Initial imaging was performed. Local anesthesia was administered. The fluid collection was accessed using an access needle followed by wire insertion and serial dilati on and a drainage catheter was placed. Position of the drainage catheter within the fluid collection was confirmed. Initial imaging findings: Multiloculated pelvic fluid collection Access route: Percutaneous Drainage catheter placed: Multipurpose drain Drain size (Fr): 10 External catheter securement: Non-absorbable suture Drainage catheter contrast injection: No Final imaging findings: Near-complete drainage of the fluid collection Contrast Contrast agent: None Contrast volume (mL): [address] dose length product (mGy-cm): 1565.29 Radiation optimization: All CT scans at this facility use at least one of these dose optimization doug hniques: automated exposure control mA and/or kV adjustment per patient size (includes targeted exam s where dose is matched to clinical indication) or iterative reconstruction. Additional Details Additional description of procedure: None Registry event: V/3/f Device used: None Equipment details: None Specimens removed: 25 mL of purulent fluid. Aspirated fluid was sent for analysis. Estimated blood loss (mL): Less than 10 Standardized report: [email or web address] Attestation Signer name: Zia Floresca I attest that I was present for the entire procedure. I reviewed the stored images and agree with the report as written.
--- NOTE | 2025-01-06 23:26 | DVHPN2 ---
Subjective Seen in bed had IR drainage Reviewed: H&P, Labs Changes from previous H/P or p: No Changes Eyes: No Pain, No Vision change, No Conjunctivae inflammation, No Eyelid inflammation, No Other, No Redness ENT: No Ear pain, No Ear discharge, No Nose pain, No Nose discharge, No Nose congestion, No Mouth pain, No Mouth swelling, No Throat pain, No Throat swelling, No Other Cardiovascular: No Chest Pain, No Palpitations, No Orthopnea, No Paroxysmal Noc. Dyspnea, No Edema, No Lt Headedness, No Other Respiratory: No Cough, No Dry, No Shortness of breath, No SOB with excertion, No Wheezing, No Hemoptysis, No Pleuritic Pain, No Sputum, No Other Gastrointestinal: No Nausea, No Vomiting; Abdominal Pain; No Diarrhea, No Constipation, No Melena, No Hematochezia, No Other Genitourinary: Dysuria; No Frequency, No Incontinence, No Hematuria, No Retention, No Other Musculoskeletal: No other, No neck pain, No shoulder pain, No arm pain, No back pain, No hand pain, No leg pain, No foot pain Skin: No Rash, No Lesions, No Jaundice, No Bruising, No Other Objective Vitals Vital Signs Date Time Temp Pulse Resp B/P (MAP) Pulse Ox O2 Delivery O2 Flow Rate FiO2 01/06/25 21:00 98.9 97 19 101/57 (72) 94 98.9 01/06/25 20:00 Room Air* 0 21 Intake/Output Intake and Output 01/06/25 07:00 Intake Total 4500 ml Balance 4500 ml Intake Oral 700 ml IV Total 3800 ml # Voids 5 # Bowel Movements 5 General Appearance: Alert, Oriented X3 Lungs: Clear to auscultation Cardiovascular: Regular rate, Normal S1, Normal S2 Abdomen: Normal bowel sounds Medications Current Medications Medications Dose Ordered Sig/Mervat Route Start Time Stop Time Status Last Admin Dose Admin Piperacillin Sod/ Tazobactam Sod 100 ml @ 25 mls/hr Q6H IV 01/05/25 22:00 01/06/25 21:38 25 MLS/HR Pantoprazole Sodium 40 mg DAILY IV 01/06/25 10:00 01/06/25 12:03 40 MG Sodium Chloride 1,000 ml @ 60 mls/hr [id number] IV 01/05/25 15:30 01/06/25 12:04 60 MLS/HR Acetaminophen/ Hydrocodone Bitart 1 tab Q4HP PRN PO 01/05/25 15:30 01/06/25 18:38 1 TAB Ondansetron HCl 4 mg Q4HP PRN IV 01/05/25 15:30 01/05/25 16:36 4 MG Docusate Sodium 100 mg BIDPRN PRN PO 01/05/25 15:30 Acetaminophen 650 mg Q6HP PRN PO 01/05/25 15:30 01/06/25 16:42 650 MG Morphine Sulfate 2 mg Q4HPRN PRN IV 01/05/25 15:30 01/05/25 15:50 2 MG Nitroglycerin 0.4 mg Q5MINP PRN SL 01/05/25 15:30 Morphine Sulfate 2 mg Q30M PRN IV 01/05/25 15:30 Vancomycin HCl 0 ml @ 0 mls/hr UD IV 01/05/25 16:00 Vancomycin HCl 200 ml @ 200 mls/hr Q8H IV 01/05/25 19:00 01/06/25 18:38 200 MLS/HR Laboratory Results Laboratory Tests 01/06/25 05:21 Chemistry Test 01/06/25 05:21 Albumin 3.9 g/dL (3.2-4.8) Calcium Level 9.7 mg/dL (8.7-10.4) Total Protein 6.5 g/dL (5.7-8.2) Coagulation Test 01/06/25 05:21 Prothrombin Time 13.5 sec (9.3-11.8) H Prothrombin Time INR 1.31 (0.9-1.15) H Activated Partial Thromboplast Time 34.0 SEC (24.5-34.5) LFT Test 01/06/25 05:21 Alanine Aminotransferase (ALT) 10 U/L (7-40) Alkaline Phosphatase 75 U/L (46-116) Aspartate Amino Transferase (AST) 10 U/L (13-40) L Total Bilirubin 1.5 mg/dL (0.2-1.0) H Urinalysis Test 01/05/25 10:00 Urine Color Light-yellow (Yellow) Urine Clarity Turbid (Clear) H Urine pH 5.5 (5.0-9.0) Urine Specific [place] 1.027 (1.001-1.035) Urine Protein Negative (Negative) Urine Ketones Negative (Negative) Urine Blood Trace /uL (Negative) H Urine Nitrite 2+ (Negative) H Urine Bilirubin Negative (Negative) Urine Urobilinogen Normal mg/dL (Negative) Urine Leukocyte Esterase 2+ /uL (Negative) Urine RBC 4 /hpf (0 - 4) Urine Microscopic WBC 31 /HPF (0-5) H Urine Squamous Epithelial Cells Few /hpf (<5) Urine Bacteria Few /hpf (None Seen) H Urine Glucose Normal mg/dL (Normal) Microbiology Microbiology Date/Time Source Procedure Growth Status 01/06/25 10:40 Aspirate Gram Stain - Final Resulted 01/06/25 10:40 Aspirate Body Fluid Culture Pending Resulted 01/05/25 09:56 Blood Blood Culture - Preliminary NO GROWTH AFTER 24 HOURS OF INCUBATION. Resulted Assessment/Plan Assessment/Plan Sepsis, unspecified organism Acute abdominal pain Postoperative abscess Urinary tract infection Generalized weakness Continue IV abx s/p IR drainage cultures sent Plan discussed with: Patient Date of Service: Jan 06, 2025 Billing Provider: EMANUEL COE MD Common Visit Codes: [id number] INP/OBS CARE(HIGH) EMANUEL COE MD Jan 06, 2025 23:26
[2025-01-07] VITALS (9 sets, daily range): BP systolic 101–113; BP diastolic 57–68; PULSE 92–117; RESP 16–19; TEMP 97.5–99.4; O2SAT 92–98
[2025-01-07] MEDS ORDERED: VANCOMYCIN 1GM/200ML PM 200 ML IV SCH
--- NOTE | 2025-01-07 18:34 | DVHPN2 ---
Subjective Seen in bed and feeling well Reviewed: H&P, Labs Changes from previous H/P or p: No Changes Eyes: No Pain, No Vision change, No Conjunctivae inflammation, No Eyelid inflammation, No Other, No Redness ENT: No Ear pain, No Ear discharge, No Nose pain, No Nose discharge, No Nose congestion, No Mouth pain, No Mouth swelling, No Throat pain, No Throat swelling, No Other Cardiovascular: No Chest Pain, No Palpitations, No Orthopnea, No Paroxysmal Noc. Dyspnea, No Edema, No Lt Headedness, No Other Respiratory: No Cough, No Dry, No Shortness of breath, No SOB with excertion, No Wheezing, No Hemoptysis, No Pleuritic Pain, No Sputum, No Other Gastrointestinal: No Nausea, No Vomiting; Abdominal Pain; No Diarrhea, No Constipation, No Melena, No Hematochezia, No Other Genitourinary: Dysuria; No Frequency, No Incontinence, No Hematuria, No Retention, No Other Musculoskeletal: No other, No neck pain, No shoulder pain, No arm pain, No back pain, No hand pain, No leg pain, No foot pain Skin: No Rash, No Lesions, No Jaundice, No Bruising, No Other Objective Vitals Vital Signs Date Time Temp Pulse Resp B/P (MAP) Pulse Ox O2 Delivery O2 Flow Rate FiO2 01/07/25 18:12 100.3 01/07/25 17:00 117 18 111/67 (82) 98 01/07/25 08:00 Room Air* 0 21 Intake/Output Intake and Output 01/07/25 07:00 Intake Total 2009 ml Balance 2009 ml Intake Oral 1310 ml IV Total 700 ml # Voids 9 # Bowel Movements 6 General Appearance: Alert, Oriented X3 Lungs: Clear to auscultation Cardiovascular: Regular rate, Normal S1, Normal S2 Abdomen: Normal bowel sounds Medications Current Medications Medications Dose Ordered Sig/Mervat Route Start Time Stop Time Status Last Admin Dose Admin Piperacillin Sod/ Tazobactam Sod 100 ml @ 25 mls/hr Q6H IV 01/05/25 22:00 01/07/25 17:27 25 MLS/HR Pantoprazole Sodium 40 mg DAILY IV 01/06/25 10:00 01/07/25 09:57 40 MG Sodium Chloride 1,000 ml @ 60 mls/hr [id number] IV 01/05/25 15:30 01/07/25 02:26 60 MLS/HR Acetaminophen/ Hydrocodone Bitart 1 tab Q4HP PRN PO 01/05/25 15:30 01/07/25 17:11 1 TAB Ondansetron HCl 4 mg Q4HP PRN IV 01/05/25 15:30 01/07/25 17:11 4 MG Docusate Sodium 100 mg BIDPRN PRN PO 01/05/25 15:30 Acetaminophen 650 mg Q6HP PRN PO 01/05/25 15:30 01/07/25 18:12 650 MG Morphine Sulfate 2 mg Q4HPRN PRN IV 01/05/25 15:30 01/05/25 15:50 2 MG Nitroglycerin 0.4 mg Q5MINP PRN SL 01/05/25 15:30 Morphine Sulfate 2 mg Q30M PRN IV 01/05/25 15:30 Vancomycin HCl 0 ml @ 0 mls/hr UD IV 01/05/25 16:00 Vancomycin HCl 200 ml @ 200 mls/hr Q6HR IV 01/08/25 00:00 Laboratory Results Laboratory Tests 01/06/25 05:21 01/07/25 05:03 Urinalysis Test 01/05/25 10:00 Urine Color Light-yellow (Yellow) Urine Clarity Turbid (Clear) H Urine pH 5.5 (5.0-9.0) Urine Specific [place] 1.027 (1.001-1.035) Urine Protein Negative (Negative) Urine Ketones Negative (Negative) Urine Blood Trace /uL (Negative) H Urine Nitrite 2+ (Negative) H Urine Bilirubin Negative (Negative) Urine Urobilinogen Normal mg/dL (Negative) Urine Leukocyte Esterase 2+ /uL (Negative) Urine RBC 4 /hpf (0 - 4) Urine Microscopic WBC 31 /HPF (0-5) H Urine Squamous Epithelial Cells Few /hpf (<5) Urine Bacteria Few /hpf (None Seen) H Urine Glucose Normal mg/dL (Normal) Microbiology Microbiology Date/Time Source Procedure Growth Status 01/06/25 10:40 Aspirate Gram Stain - Final Resulted 01/06/25 10:40 Aspirate Body Fluid Culture - Preliminary Resulted 01/05/25 09:56 Blood Blood Culture - Preliminary NO GROWTH AFTER 48 HOURS OF INCUBATION. Resulted Assessment/Plan Assessment/Plan Sepsis, unspecified organism Acute abdominal pain Postoperative abscess Urinary tract infection Generalized weakness Continue IV abx s/p IR drainage cultures sent Plan discussed with: Patient My Orders Orders - EMANUEL COE MD Procedure Category Date Status Time Regular Diet DIET 01/07/25 Transmitted Breakfast Date of Service: Jan 07, 2025 Billing Provider: EMANUEL COE MD Common Visit Codes: [id number] INP/OBS CARE(HIGH) EMANUEL COE MD Jan 07, 2025 18:34
[2025-01-08] VITALS (8 sets, daily range): BP systolic 100–113; BP diastolic 53–75; PULSE 92–108; RESP 18–20; TEMP 98.1–99.4; O2SAT 92–97
[2025-01-08] MEDS: VANCOMYCIN 1GM/200ML PM 200 ML IV SCH (02:15)
[2025-01-08 11:27] LABS: Hematocrit 23.9 % (36.0-46.0); Hemoglobin 7.3 g/dL (12.2-16.2); Mean Corpuscular Hemoglobin 18.6 pg (28.0-32.0); Mean Corpuscular Volume 60.9 fL (80.0-100.0); Nucleated Red Blood Cells % 0.0 %
[2025-01-08 11:40] LABS: Chloride 102 mmol/L (98-107); Sodium 137 mmol/L (136-145)
[2025-01-08 11:41] LABS: Anion Gap 11 (5-15); Carbon Dioxide 24 mmol/L (20-31)
[2025-01-08 11:42] LABS: Calcium 9.2 mg/dL (8.7-10.4)
[2025-01-08 11:47] LABS: BUN/Creatinine Ratio 9.8 (10.0-20.0); Glucose 99 mg/dL (74-106)
[2025-01-08 11:53] LABS: Blood Urea Nitrogen 6 mg/dL (9-23); Potassium 3.0 mmol/L (3.5-5.1)
--- NOTE | 2025-01-08 15:49 | DVHPN2 ---
Subjective Seen in bed and feeling well Reviewed: H&P, Labs Changes from previous H/P or p: No Changes Eyes: No Pain, No Vision change, No Conjunctivae inflammation, No Eyelid inflammation, No Other, No Redness ENT: No Ear pain, No Ear discharge, No Nose pain, No Nose discharge, No Nose congestion, No Mouth pain, No Mouth swelling, No Throat pain, No Throat swelling, No Other Cardiovascular: No Chest Pain, No Palpitations, No Orthopnea, No Paroxysmal Noc. Dyspnea, No Edema, No Lt Headedness, No Other Respiratory: No Cough, No Dry, No Shortness of breath, No SOB with excertion, No Wheezing, No Hemoptysis, No Pleuritic Pain, No Sputum, No Other Gastrointestinal: No Nausea, No Vomiting; Abdominal Pain; No Diarrhea, No Constipation, No Melena, No Hematochezia, No Other Genitourinary: Dysuria; No Frequency, No Incontinence, No Hematuria, No Retention, No Other Musculoskeletal: No other, No neck pain, No shoulder pain, No arm pain, No back pain, No hand pain, No leg pain, No foot pain Skin: No Rash, No Lesions, No Jaundice, No Bruising, No Other Objective Vitals Vital Signs Date Time Temp Pulse Resp B/P (MAP) Pulse Ox O2 Delivery O2 Flow Rate FiO2 01/08/25 13:00 98.3 92 18 101/53 (69) 92 98.3 01/08/25 08:05 Room Air* 0 21 Intake/Output Intake and Output 01/08/25 07:00 Intake Total 2289.39 ml Output Total 15 ml Balance 2274.39 ml Intake Oral 1220 ml IV Total 1069.39 ml Output Drainage Total 15 ml # Voids 6 General Appearance: Alert, Oriented X3 Lungs: Clear to auscultation Cardiovascular: Regular rate, Normal S1, Normal S2 Abdomen: Normal bowel sounds Medications Current Medications Medications Dose Ordered Sig/Mervat Route Start Time Stop Time Status Last Admin Dose Admin Piperacillin Sod/ Tazobactam Sod 100 ml @ 25 mls/hr Q6H IV 01/05/25 22:00 01/08/25 09:47 25 MLS/HR Pantoprazole Sodium 40 mg DAILY IV 01/06/25 10:00 01/08/25 09:47 40 MG Sodium Chloride 1,000 ml @ 60 mls/hr [id number] IV 01/05/25 15:30 01/08/25 13:16 60 MLS/HR Acetaminophen/ Hydrocodone Bitart 1 tab Q4HP PRN PO 01/05/25 15:30 01/08/25 09:55 1 TAB Ondansetron HCl 4 mg Q4HP PRN IV 01/05/25 15:30 01/07/25 17:11 4 MG Docusate Sodium 100 mg BIDPRN PRN PO 01/05/25 15:30 Acetaminophen 650 mg Q6HP PRN PO 01/05/25 15:30 01/07/25 18:12 650 MG Morphine Sulfate 2 mg Q4HPRN PRN IV 01/05/25 15:30 01/05/25 15:50 2 MG Nitroglycerin 0.4 mg Q5MINP PRN SL 01/05/25 15:30 Morphine Sulfate 2 mg Q30M PRN IV 01/05/25 15:30 Vancomycin HCl 0 ml @ 0 mls/hr UD IV 01/05/25 16:00 Vancomycin HCl 200 ml @ 200 mls/hr Q6H IV 01/08/25 02:00 01/08/25 08:00 200 MLS/HR Laboratory Results Laboratory Tests 01/08/25 05:32 Chemistry Test 01/08/25 05:32 Calcium Level 9.2 mg/dL (8.7-10.4) Urinalysis Test 01/05/25 10:00 Urine Color Light-yellow (Yellow) Urine Clarity Turbid (Clear) H Urine pH 5.5 (5.0-9.0) Urine Specific [place] 1.027 (1.001-1.035) Urine Protein Negative (Negative) Urine Ketones Negative (Negative) Urine Blood Trace /uL (Negative) H Urine Nitrite 2+ (Negative) H Urine Bilirubin Negative (Negative) Urine Urobilinogen Normal mg/dL (Negative) Urine Leukocyte Esterase 2+ /uL (Negative) Urine RBC 4 /hpf (0 - 4) Urine Microscopic WBC 31 /HPF (0-5) H Urine Squamous Epithelial Cells Few /hpf (<5) Urine Bacteria Few /hpf (None Seen) H Urine Glucose Normal mg/dL (Normal) Microbiology Microbiology Date/Time Source Procedure Growth Status 01/06/25 10:40 Aspirate Gram Stain - Final Complete 01/06/25 10:40 Body Fluid Culture - Final Escherichia coli Complete 01/05/25 09:56 Blood Blood Culture - Preliminary NO GROWTH AFTER 72 HOURS OF INCUBATION. Resulted Assessment/Plan Assessment/Plan Sepsis, unspecified organism Acute abdominal pain Postoperative abscess Urinary tract infection Generalized weakness Continue IV abx s/p IR drainage cultures sent Plan discussed with: Patient My Orders Orders - EMANUEL COE MD Procedure Category Date Status Time Complete Blood Count LAB 01/09/25 Verified 05:00 Complete Blood Count LAB 01/10/25 Verified 05:00 Complete Blood Count LAB 01/11/25 Verified 05:00 Complete Blood Count LAB 01/12/25 Verified 05:00 Complete Blood Count LAB 01/13/25 Verified 05:00 Complete Blood Count LAB 01/14/25 Verified 05:00 Complete Blood Count LAB 01/15/25 Verified 05:00 Basic Metabolic Panel LAB 01/09/25 Verified 05:00 Basic Metabolic Panel LAB 01/10/25 Verified 05:00 Basic Metabolic Panel LAB 01/11/25 Verified 05:00 Basic Metabolic Panel LAB 01/12/25 Verified 05:00 Basic Metabolic Panel LAB 01/13/25 Verified 05:00 Basic Metabolic Panel LAB 01/14/25 Verified 05:00 Basic Metabolic Panel LAB 01/15/25 Verified 05:00 Date of Service: Jan 08, 2025 Billing Provider: EMANUEL COE MD Common Visit Codes: [id number] INP/OBS CARE(HIGH) EMANUEL COE MD Jan 08, 2025 15:49
[2025-01-08] MEDS: POTASSIUM CHL 20 Meq TABLET PO ONE (21:07)
[2025-01-09] VITALS (8 sets, daily range): BP systolic 97–128; BP diastolic 55–78; PULSE 80–102; RESP 16–20; TEMP 97.8–100; O2SAT 92–98
[2025-01-09 07:06] LABS: Anion Gap 7 (5-15); Carbon Dioxide 28 mmol/L (20-31); Chloride 103 mmol/L (98-107); Sodium 138 mmol/L (136-145)
[2025-01-09 07:07] LABS: Calcium 9.2 mg/dL (8.7-10.4)
[2025-01-09 07:12] LABS: Glucose 96 mg/dL (74-106)
[2025-01-09 07:34] LABS: BUN/Creatinine Ratio 9.8 (10.0-20.0); Blood Urea Nitrogen < 5 mg/dL (9-23); Potassium 3.2 mmol/L (3.5-5.1)
[2025-01-09 08:36] LABS: Hematocrit 22.5 % (36.0-46.0); Hemoglobin 7.1 g/dL (12.2-16.2); Mean Corpuscular Hemoglobin 18.9 pg (28.0-32.0); Mean Corpuscular Volume 60.4 fL (80.0-100.0); Nucleated Red Blood Cells % 0.1 %
[2025-01-09] MEDS: DOCUSATE SOD 100 MG CAP PO PRN (09:10)
[2025-01-09] MEDS: VANCOMYCIN 1GM/200ML PM 200 ML IV SCH (10:00)
--- NOTE | 2025-01-09 15:43 | DVHPN2 ---
Subjective Seen in bed and feeling well Reviewed: H&P, Labs Changes from previous H/P or p: No Changes Eyes: No Pain, No Vision change, No Conjunctivae inflammation, No Eyelid inflammation, No Other, No Redness ENT: No Ear pain, No Ear discharge, No Nose pain, No Nose discharge, No Nose congestion, No Mouth pain, No Mouth swelling, No Throat pain, No Throat swelling, No Other Cardiovascular: No Chest Pain, No Palpitations, No Orthopnea, No Paroxysmal Noc. Dyspnea, No Edema, No Lt Headedness, No Other Respiratory: No Cough, No Dry, No Shortness of breath, No SOB with excertion, No Wheezing, No Hemoptysis, No Pleuritic Pain, No Sputum, No Other Gastrointestinal: No Nausea, No Vomiting; Abdominal Pain; No Diarrhea, No Constipation, No Melena, No Hematochezia, No Other Genitourinary: Dysuria; No Frequency, No Incontinence, No Hematuria, No Retention, No Other Musculoskeletal: No other, No neck pain, No shoulder pain, No arm pain, No back pain, No hand pain, No leg pain, No foot pain Skin: No Rash, No Lesions, No Jaundice, No Bruising, No Other Objective Vitals Vital Signs Date Time Temp Pulse Resp B/P (MAP) Pulse Ox O2 Delivery O2 Flow Rate FiO2 01/09/25 12:54 98.2 89 20 108/65 (79) 95 98.2 01/09/25 07:30 Room Air* 0 21 Intake/Output Intake and Output 01/09/25 07:00 Intake Total 2760.61 ml Output Total 1150 ml Balance 1610.61 ml Intake Oral 1530 ml IV Total 1230.61 ml Output Urine Total 1150 ml # Voids 4 General Appearance: Alert, Oriented X3 Lungs: Clear to auscultation Cardiovascular: Regular rate, Normal S1, Normal S2 Abdomen: Normal bowel sounds Medications Current Medications Medications Dose Ordered Sig/Mervat Route Start Time Stop Time Status Last Admin Dose Admin Piperacillin Sod/ Tazobactam Sod 100 ml @ 25 mls/hr Q6H IV 01/05/25 22:00 01/09/25 09:11 25 MLS/HR Pantoprazole Sodium 40 mg DAILY IV 01/06/25 10:00 01/09/25 09:10 40 MG Sodium Chloride 1,000 ml @ 60 mls/hr [id number] IV 01/05/25 15:30 01/08/25 13:16 60 MLS/HR Acetaminophen/ Hydrocodone Bitart 1 tab Q4HP PRN PO 01/05/25 15:30 01/09/25 09:10 1 TAB Ondansetron HCl 4 mg Q4HP PRN IV 01/05/25 15:30 01/07/25 17:11 4 MG Docusate Sodium 100 mg BIDPRN PRN PO 01/05/25 15:30 01/09/25 09:10 100 MG Acetaminophen 650 mg Q6HP PRN PO 01/05/25 15:30 01/08/25 19:08 650 MG Morphine Sulfate 2 mg Q4HPRN PRN IV 01/05/25 15:30 01/05/25 15:50 2 MG Nitroglycerin 0.4 mg Q5MINP PRN SL 01/05/25 15:30 Morphine Sulfate 2 mg Q30M PRN IV 01/05/25 15:30 Vancomycin HCl 0 ml @ 0 mls/hr UD IV 01/05/25 16:00 Vancomycin HCl 200 ml @ 200 mls/hr Q8H IV 01/09/25 10:00 Laboratory Results Laboratory Tests 01/09/25 06:05 01/09/25 08:09 Chemistry Test 01/09/25 06:05 Calcium Level 9.2 mg/dL (8.7-10.4) Urinalysis Test 01/05/25 10:00 Urine Color Light-yellow (Yellow) Urine Clarity Turbid (Clear) H Urine pH 5.5 (5.0-9.0) Urine Specific [place] 1.027 (1.001-1.035) Urine Protein Negative (Negative) Urine Ketones Negative (Negative) Urine Blood Trace /uL (Negative) H Urine Nitrite 2+ (Negative) H Urine Bilirubin Negative (Negative) Urine Urobilinogen Normal mg/dL (Negative) Urine Leukocyte Esterase 2+ /uL (Negative) Urine RBC 4 /hpf (0 - 4) Urine Microscopic WBC 31 /HPF (0-5) H Urine Squamous Epithelial Cells Few /hpf (<5) Urine Bacteria Few /hpf (None Seen) H Urine Glucose Normal mg/dL (Normal) Microbiology Microbiology Date/Time Source Procedure Growth Status 01/06/25 10:40 Aspirate Gram Stain - Final Complete 01/06/25 10:40 Body Fluid Culture - Final Escherichia coli Complete 01/05/25 09:56 Blood Blood Culture - Preliminary NO GROWTH AFTER 72 HOURS OF INCUBATION. Resulted Assessment/Plan Assessment/Plan Sepsis, unspecified organism Acute abdominal pain Postoperative abscess Urinary tract infection Generalized weakness Continue IV abx s/p IR drainage Cultures with e coli pansensitive Plan to DC tomorrow after I speak to IR about drainage Plan discussed with: Patient Date of Service: Jan 09, 2025 Billing Provider: EMANUEL COE MD Common Visit Codes: [id number] INP/OBS CARE(HIGH) EMANUEL COE MD Jan 09, 2025 15:43
[2025-01-10 01:00] VITALS: BP 104/62; PULSE 89; RESP 20; TEMP 98.6; O2SAT 95
[2025-01-10] MEDS: PIPERACILLIN-TAZOB 3.375GM 100 ML IV SCH (03:21)
[2025-01-10 05:00] VITALS: BP 104/69; PULSE 72; RESP 20; TEMP 98.2; O2SAT 95
[2025-01-10 07:30] VITALS: PULSE 93
[2025-01-10 07:56] LABS: Hematocrit 22.4 % (36.0-46.0); Hemoglobin 7.1 g/dL (12.2-16.2); Mean Corpuscular Hemoglobin 19.0 pg (28.0-32.0); Mean Corpuscular Volume 60.2 fL (80.0-100.0); Nucleated Red Blood Cells % 0.0 %
[2025-01-10 07:59] LABS: Chloride 104 mmol/L (98-107); Sodium 140 mmol/L (136-145)
[2025-01-10 08:00] LABS: Anion Gap 9 (5-15); Calcium 9.4 mg/dL (8.7-10.4); Carbon Dioxide 27 mmol/L (20-31)
[2025-01-10 08:05] LABS: BUN/Creatinine Ratio 9.1 (10.0-20.0); Glucose 91 mg/dL (74-106)
[2025-01-10 08:07] LABS: Blood Urea Nitrogen 5 mg/dL (9-23); Potassium 3.3 mmol/L (3.5-5.1)
[2025-01-10 08:24] VITALS: BP 100/64; PULSE 86; RESP 17; TEMP 98.6; O2SAT 97
[2025-01-10 12:23] VITALS: BP 105/61; PULSE 87; RESP 17; TEMP 98.3; O2SAT 96
[2025-01-10] MEDS ORDERED: CIPR500T4 PO (14:05)
[2025-01-10 14:52] VITALS: TEMP 36.8
[2025-01-10] MEDS ORDERED: VANCOMYCIN PER PHARMACY 0 MG IV SCH (18:00)
[2025-01-10] MEDS ORDERED: VANCOMYCIN 1.25gm/250mL PREMIX or KIT IV SCH (18:00)
[2025-01-10] MEDS ORDERED: VANCOMYCIN 1.25GM/250ML 250 ML IV SCH ×2 (18:00)
== END 2025-01-10 15:37 | disposition home or self-care (01) | DRG 862 ==
LOC: ER 09:40 → EDBD 09:40 → OVERFLOW 15:17 → TELE-EAST 18:11
PROVIDERS: ADMIT Hospitalist; ATTEND Hospitalist
PROC: 0W9G30Z Drainage of Peritoneal Cavity with Drainage Device, Percutaneous Approach (ICD-10-PCS; principal; 2025-01-06)
DX: T81.41XA Infection following a procedure, superficial incisional surgical site, initial encounter (principal); A41.9 Sepsis, unspecified organism; K65.1 Peritoneal abscess; N39.0 Urinary tract infection, site not specified; Z90.710 Acquired absence of both cervix and uterus; Z90.711 Acquired absence of uterus with remaining cervical stump; B96.20 Unspecified Escherichia coli [E. coli] as the cause of diseases classified elsewhere; Y83.8 Other surgical procedures as the cause of abnormal reaction of the patient, or of later complication, without mention of misadventure at the time of the procedure; Y92.89 Other specified places as the place of occurrence of the external cause
CPT/HCPCS: 36415; 71045; 74176; 74177; 75989; 80048; 80053; 80202; 81001; 82565; 83605; 85025; 85610; 85730; 86850; 86900; 86901; 87040; 87077; 87186; 87205; 96361; 96365; 99291; C1729; G0378; J2003; J2250; J2405; J2470; J2543; J3490